=== PATIENT | female | born 1955 | race Caucasian/White ===

== ENCOUNTER → 2017-05-08 | Outpatient (CLI) | payer MEDICARE, OTHER ==
[~2017-05-08] MED LIST: ALBU0.63 NEB; ALPR0.25 PO; AMLO10TA2 PO; ATOR10TA15 PO; ESCI20TA PO; LOSA50TA PO; METF500T PO; OMEP40CA2 PO; POTA10CA PO; QUET5TAB PO; VENTAER INH; VOLT1GEL4 TOPICAL; ZOLP10TA3 PO
[2017-05-08 11:16] LABS: AUTOMATED NEUTROPHIL # 4.9 TH/MM3 (1.8-7.7); BASOPHIL # 0.1 TH/MM3 (0-0.2); BASOPHIL % 1.2 % (0.0-2.0); EOSINOPHIL # 0.3 TH/MM3 (0-0.4); EOSINOPHIL % 3.2 % (0.0-4.0); HEMATOCRIT 41.8 % (35.0-46.0); HEMO FLAGS DIFF FINAL; LYMPH % 26.8 % (9.0-44.0); LYMPHOCYTE # 2.2 TH/MM3 (1.0-4.8); MEAN CELL VOLUME 85.5 FL (80.0-100.0); MEAN CORPUSCULAR HEMOGLOBIN 28.9 PG (27.0-34.0); MEAN CORPUSCULAR HGB CONC 33.8 % (32.0-36.0); MONO % 8.2 % (0.0-8.0); NEUT % 60.6 % (16.0-70.0); PLATELET COUNT 288 TH/MM3 (150-450); RED BLOOD COUNT 4.89 MIL/MM3 (4.00-5.30); RED CELL DISTRIBUTION WIDTH 13.6 % (11.6-17.2)
[2017-05-08 11:25] LABS: INTERNATIONAL NORMALIZED RATIO 0.9 RATIO; PROTHROMBIN TIME - PATIENT 10.3 SEC (9.8-11.6)
--- NOTE | 2017-05-08 11:32 | RADRPT ---
EXAM DATE/TIME: 05/08/2017 11:17 [facility] COMPARISON: No previous studies available for comparison. INDICATIONS : Evaluate for pneumonia, pneumothorax, and communicable disease. Preoperative exam for left knee arthr oscopy and possible MEDICAL HISTORY : Hypertension. Carcinoma, breast. Diabetes. SURGICAL HISTORY : Multiple abdominal wall hernia repairs. ENCOUNTER: Initial ACUITY: 1 day PAIN SCORE: 0/10 LOCATION: Bilateral chest FINDINGS: PA and lateral views of the chest demonstrate the lungs to be symmetrically aerated without evidence of mass, infiltrate or effusion. There is some chronic appearing mild interstitial changes bilaterall y. There some mild prominence of the pulmonary vasculature. There is a calcified granuloma in the rig ht lower lung. The cardiomediastinal contours are unremarkable. Osseous structures are intact. CONCLUSION: 1. No definite acute pulmonary infiltrates. 2. Possible pulmonary venous congestion.. 3. Calcified granuloma in the right lower lung. 4. Mild chronic appearing interstitial changes bilaterally. Martin Yuan MD on May 08, 2017 at 11:29 Board Certified Radiologist. This report was verified electronically.
[2017-05-08 11:44] LABS: POTASSIUM 4.2 MEQ/L (3.5-5.1)
[2017-05-08 11:49] LABS: BACTERIA, URINE RARE /hpf; BLOOD, URINE NEG (NEG); COMMENT (UR) CULT NOT INDICATED; CULTURE IF INDICATED CULT NOT INDICATED; GLUCOSE,URINE NEG (NEG); KETONE, URINE NEG (NEG); MUCUS URINE FEW /lpf (OCC); NITRITE,URINE NEG (NEG); PH, URINE 6.5 (5.0-8.5); SQUAMOUS EPITHELIAL CELL URINE 2 /hpf (0-5); URINE COLOR YELLOW (YELLW/STRAW)
--- NOTE | 2017-05-09 17:07 | EKG ---
Date Performed: 05/08/2017 Time Performed: 10:42:57 PTAGE: 62 years EKG: ECTOPIC ATRIAL RHYTHM POSSIBLE RIGHT VENTRICULAR CONDUCTION DELAY ABNORMAL RHYTHM ECG NO PREVIOUS TRACING DOCTOR: Xavi Carlos Interpretating Date/Time 05/09/2017 17:06:12
== END ==
LOC: CPRE 10:15
PROVIDERS: ATTEND Orthopaedic Surgery
DX: Z01.812 Encounter for preprocedural laboratory examination (principal); Z01.810 Encounter for preprocedural cardiovascular examination; Z01.811 Encounter for preprocedural respiratory examination; S83.232D Complex tear of medial meniscus, current injury, left knee, subsequent encounter; I10 Essential (primary) hypertension; E11.9 Type 2 diabetes mellitus without complications; I49.9 Cardiac arrhythmia, unspecified
CPT/HCPCS: 36415; 71020; 80048; 81001; 85025; 85610; 93005

== ENCOUNTER → 2017-05-16 | Day surgery (SDC) | payer MEDICARE, OTHER ==
--- NOTE | 2017-05-07 07:46 | MH ---
cc: GENIA HUDSON DATE OF ADMISSION: 05/16/2017 ADMISSION DIAGNOSIS Complex tear medial meniscus left knee, chondromalacia left knee, chondromalacia patellae left knee, effusion left knee, Lorenzana's cyst left knee and pain of the left knee. HISTORY OF THE PRESENT ILLNESS The patient is a 62-year-old white female who has experienced pain of her left knee of almost 9 months duration. She had noted the onset of her symptoms in July of this past year being of a gradual onset along the medial aspect of her knee unrelated to injury or unusual activity. She had undergone initial medical evaluation with her primary care physician Dr. Olson who ordered x-ray studies the results of which reported mild osteoarthritis about the medial compartment with a questionable small joint effusion. The patient was prescribed Motrin as well as Voltaren gel and later a steroid dose pack with minimal benefit being appreciated. She was subsequently seen by the undersigned physician in August of this past year and at that time the patient reported ongoing pain that she localized to the medial aspect of her left knee with minimal swelling but no associated grinding or locking like symptoms. She did report that within the previous 4 years while living in [place] she had experienced a similar episode of pain of her knees and indicated she may have undergone a course of viscosupplementation with no appreciable benefit described. She had been on disability having undergone a mastectomy of her right breast and 1998 followed by reconstructive surgery with her postoperative course complicated by recurrent abdominal hernias that required multiple surgical procedures including mesh insertion. At the time of her initial office evaluation a review of her x-ray studies was without evidence of appreciable degenerative change. The patient was diagnosed as having tendonitis of her left knee for which she was treated with a local steroid injection and followed on an outpatient basis thereafter. She seemed to be doing reasonably well at that time indicating some overall improvement for the following few months. She returned to the office in March of this year reporting that she had had a flare-up of pain about her knee for which she was seen in the emergency room of [facility] with apparently no acute bony abnormality being noted. She was again prescribed Motrin and was seen in follow-up disposition and at that time described ongoing problems with regards to all weightbearing activities. A recommendation was made to proceed with an MRI scan which was completed, the results of which identified a complex tear involving the medial meniscus associated with a moderately severe medial compartment chondromalacia and mild patellofemoral compartment chondromalacia. A moderate sized joint effusion was associated with a large ruptured Lorenzana's cyst. The patient described ongoing pain about her knee especially along the medial aspect of the joint that was interfering with all ambulatory activities. The findings of her scan were reviewed and treatment options discussed. The pros and cons of continuing with further conservative modalities versus operative intervention that would involve arthroscopic surgery with possible arthrotomy was outlined. Emphasis was made regarding the fact that the decision to proceed with surgery would be left entirely to the patient's discretion. The patient felt that her level of discomfort was of such a degree that she was ready to proceed with surgery as discussed and upon completion of medical clearance from her primary care physician Dr. Olson she was scheduled for admission in order that the above be accomplished. PAST MEDICAL HISTORY Her past medical history, hospitalizations and surgeries have included: 1. Right breast mastectomy followed by reconstructive surgery with multiple hernias thereafter require additional operative procedures. 2. Colonoscopy. 3. Tubal ligation. PAST MEDICAL HISTORY The patient's medical illnesses include: 1. Hypertension. 2. And diabetes. MEDICATIONS Her current medications: 1. Albuterol 2.5 mg three times daily as needed. 2. Alprazolam 0.25 mg twice daily. 3. Amlodipine 10 mg daily. 4. Atorvastatin 10 mg daily. 5. Escitalopram 20 mg daily. 6. Losartan 50 mg daily. 7. Metformin 500 mg twice daily. 8. Omeprazole 40 mg daily. 9. One touch Verio strips. 10. Potassium chloride ER 10 mEq daily. 11. Quetiapine 50 mg daily. 12. Ventolin HFA 90 mcg daily. 13. Voltaren gel 1% four times daily. 14. Zolpidem 10 mg daily. ALLERGIES The patient denies any known drug allergies. REVIEW OF SYSTEMS She wears glasses. Denies headache, seizure or syncope. Occasional sinus congestion as related to environmental irritants. No epistaxis. Auditory acuity intact. No tinnitus. No bleeding gums or dysphagia. Denies cough, shortness of breath, upper respiratory infection, pneumonia or tuberculosis. No angina or heart disease. She is medically managed for hypertension. Her appetite is good. Bowel movements are regular. No hepatitis, gallbladder disease, ulcers or hemorrhoids. No urinary tract infection. No kidney stones. No history of fractures. No psychiatric illness. Her remaining review of systems is unremarkable and noncontributory. FAMILY HISTORY The patient has been 42 years. Her is 64 years of age and described as being in good health. Two daughters, one at 35 years of age with a history of stroke. Family history is otherwise positive for diabetes, hypertension, heart disease, Alzheimer's disease and stroke. SOCIAL HISTORY The patient completed a high school education. 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 She admits to an intermittent use of tobacco for 20 years, being approximately a one-pack per day but is basically limited smoking to near zero within the past year. Ethanol consumption on rare occasion. PHYSICAL EXAMINATION Height 5 feet 6 inches, weight 238 pounds. GENERAL: An alert, oriented responsive 62-year-old white female who sits quietly upon examination table with no obvious distress. HEAD, EYES, EARS, NOSE, AND THROAT: Pupils are equally round and reactive to light. Extraocular movements full. Sclerae clear. External nares clear. External auditory canals clear. Dental intact. Mucous membranes pink and moist. Pharynx clear. NECK: Supple. Active range of motion without appreciable pain. Carotid pulse palpable bilaterally. Trachea midline. Thyroid without enlargement. LUNGS: Clear to auscultation and percussion. No CVA tenderness. No discomfort throughout the dorsal lumbar spine. HEART: Regular rhythm. No murmur or gallop. ABDOMEN: Soft, nontender. Bowel sounds present. PELVIC: Per primary care physician. EXTREMITIES: Left knee there is a mild fullness about the knee consistent with intra-articular effusion. Medial joint line tenderness without palpable deformity. Apprehension and compression sign negative. A 0-105 degree range of motion with discomfort at the extreme of flexion. No crepitation or instability. No collateral ligamentous laxity. Christian test and drawer sign negative. Pivot shift and Coral sign positive for medial compartment pain. Straight-leg raising unremarkable at 80 degrees. Satisfactory mobility of the left hip with no associated pain. Distal sensory grossly intact. Mild antalgic gait. NEUROLOGIC: Cranial nerves II-XII grossly intact. IMPRESSION Complex tear medial meniscus left knee. chondromalacia left knee, chondromalacia patellae left knee, effusion left knee, Lorenzana's cyst left knee, pain left knee. PLAN Arthroscopic surgery and possible arthrotomy left knee. The nature of the planned surgical procedure, the potential complications and risks associated, the expectations of surgery and the consent form were thoroughly reviewed with the patient in the presence of her daughter prior to admission to the hospital. The patient has indicated her full understanding regarding all of the above and given consent to proceed with treatment as outlined. Medical evaluation and clearance for surgery will be completed by her primary care physician Dr. Sakshi Olson. MD FEDERICO Pritchard/KK /4:50 PM /7:39 AM
[~2017-05-16] VITALS: Ht 170.2 cm; Wt 108.9 kg
[~2017-05-16] MED LIST changes: +*RESP: ALBUTEROL 2.5 MG/3 ML NEB (PRN) PERIprocedural Use ONLY NEB ONE; +ACETAMINOPHEN 1000 MG/100 ML VIAL IV ONE; +ACETAMINOPHEN/HYDROcodone 325 MG/5 MG TAB PO PRN; +CHLORHEXIDINE GLUCONATE 2 % 1 PACK (2 CLOTHS) TOPICAL PRN; +DO NOT ADM ANY ANTICOAGULANT DRUGS PRN; +FAMOTIDINE 20 MG/2 ML VIAL ONE; +INSULIN HUMAN REGULAR 1,000 UNITS/10 ML VIAL SQ PRN; +KETOROLAC TROMETHAMINE 60 MG/2 ML (IM) VIAL IM ONE; +LACTATED RINGER'S 1000 ML INJ 1,000 ML IV ONE; +LACTATED RINGER'S 1000 ML IV PRN; +LIDOCAINE HCL 2% 50 ML VIAL ONE; +LIDOCAINE HCL 2% 50 ML VIAL OTHER ONE; +METOPROLOL TARTRATE 25 MG TAB PO PRN; +MIDAZOLAM HCL 2 MG/2 ML VIAL ONE; +MORPHINE SULFATE 10 MG/ML INJ IM PRN; +NEOSTIGMINE 3 MG/3 ML SYR IV ONE; +ONDANSETRON HCL 4 MG/2 ML VIAL IV PUSH ONE; +POVIDONE IODINE 5% (ANTISEPSIS KIT) 4 APPLICATIONS EACH NARE PRN; +POVIDONE IODINE 7.5% SCRUB 118 ML BOTTLE TOPICAL SCH; +PROMETHAZINE INJ 25 MG/ML VIAL IM PRN; +PROPOFOL 200 MG/20 ML AMP IV ONE; +SODIUM CHLORID 0.9% 500 ML IV PRN; +TRIAMCINOLONE ACETONIDE 40 MG/ML VIAL I-ARTICULR ONE; +TRIAMCINOLONE ACETONIDE 40 MG/ML VIAL ONE; +ceFAZolin 2 GM PREMIX 50 ML IV SCH; +ePHEDrine/NS 25 MG/5 ML SYR IV ONE; +fentaNYL CITRATE 250 MCG/5 ML AMP ONE
[2017-05-16 06:03] VITALS: BP 145/80; PULSE 79; RESP 20; TEMP 98.3; O2SAT 94
[2017-05-16 10:20] VITALS: BP 133/65; PULSE 76; RESP 20; TEMP 97.7; O2SAT 97
--- NOTE | 2017-05-16 16:19 | MP ---
cc: GENIA HUDSON DATE OF SURGERY 05/16/17 PREOPERATIVE DIAGNOSIS A complex tear of the medial meniscus of the left knee. Chondromalacia left knee. Chondromalacia patellae left knee. Effusion left knee. Lorenzana's cyst left knee. Pain of the left knee. POSTOPERATIVE DIAGNOSIS A complex tear of the medial meniscus of the left knee. Chondromalacia left knee. Chondromalacia patellae left knee. Effusion left knee. Lorenzana's cyst left knee. Pain of the left knee. Degenerative tear lateral meniscus left knee. Osteoarthritis left knee and synovial plica left knee. PROCEDURE Partial medial and lateral meniscectomy of the left knee. Chondroplasty of the medial compartment and resection of synovial plica left knee. SURGEON MD Kasey ANESTHESIA General by LMA. FORMAT Following the induction of satisfactory general anesthesia by LMA insertion as completed per the Department of Anesthesia examination of the left knee revealed a satisfactory range of motion with no appreciable ligamentous instability. The extremity proper was positioned into the nursing surgical services director knee beltran, prepped with Betadine solution and draped into a sterile field in the routine manner. Prior to initiation of the actual procedure the standard time-out protocol was completed. All parameters were appropriately addressed and confirmed by operating room personnel. Arthroscopic instrumentation was introduced through stab wound utilizing cannula with sharp and blunt trocar. The inflow irrigation by way of a medial suprapatellar portal. The arthroscope through a lateral parapatellar portal, a probe through a medial parapatellar portal. Examination of the suprapatellar pouch did reveal reactive synovium with a synovial plica extending along the medial aspect of the suprapatellar region. Mild degenerative change was noted throughout the patellofemoral articulation. Within the medial compartment a complex tear involving the body and posterior horn of the medial meniscus was noted with associated degenerative changes involving both femoral condyle and tibial plateau. The anterior cruciate ligament was identified and noted to be intact. Proliferative synovium did extend into the intercondylar region. Examination of the lateral compartment revealed a degenerative tear involving the body and anterior horn of the lateral meniscus with a lesser degree of degenerative involvement along the articular surface. Utilizing a 3.8 full radius resector a partial lateral meniscectomy was accomplished as well as __ debridement throughout the intercondylar region and thereafter a partial medial meniscectomy was noted followed by a chondroplasty involving the articular surfaces of both the femoral condyle and the tibial plateau. The shaver was thereafter oriented into the suprapatellar region and the previously identified synovial plica along with reactive synovitis was resected and sharply debrided. Upon completion of same the joint space was thoroughly lavaged and suctioned dry. An intra-articular Kenalog lidocaine injection was completed. Portal sites were reapproximated with Steri-Strips over which Xeroform gauze and a bulky dry sterile dressing were placed. Anesthesia was discontinued. The patient thus transferred to the hospital stretcher and returned to the recovery room in satisfactory condition having tolerated her operative procedure well. Estimated blood loss approximately 10 cc. MD FEDERICO Pritchard/ARIANNA /8:36 AM /4:02 PM
== END | disposition home or self-care (01) ==
LOC: HSDC 05:11
PROVIDERS: ATTEND Orthopaedic Surgery
DX: S83.232D Complex tear of medial meniscus, current injury, left knee, subsequent encounter (principal); M23.242 Derangement of anterior horn of lateral meniscus due to old tear or injury, left knee; X58.XXXD Exposure to other specified factors, subsequent encounter; M94.262 Chondromalacia, left knee; M22.40 Chondromalacia patellae, unspecified knee; M25.462 Effusion, left knee; M71.22 Synovial cyst of popliteal space [Baker], left knee; M17.12 Unilateral primary osteoarthritis, left knee; M67.52 Plica syndrome, left knee; I10 Essential (primary) hypertension; E11.9 Type 2 diabetes mellitus without complications; F32.9 Major depressive disorder, single episode, unspecified; F41.9 Anxiety disorder, unspecified; E66.9 Obesity, unspecified; Z68.37 Body mass index [BMI] 37.0-37.9, adult; Z87.891 Personal history of nicotine dependence; Z79.84 Long term (current) use of oral hypoglycemic drugs; Z79.51 Long term (current) use of inhaled steroids; Z79.899 Other long term (current) drug therapy
CPT/HCPCS: 01400; 29875; 29880; 94664; J0131; J0690; J1885; J2250; J2405; J2710; J3010; J3301; J7120; J7613

== ENCOUNTER 2017-07-29 10:05 | Day surgery (SDC) | payer MEDICARE, OTHER ==
[~2017-07-29] VITALS: Ht 167.6 cm; Wt 104.0 kg
[~2017-07-29 10:05] MED LIST changes: -*RESP: ALBUTEROL 2.5 MG/3 ML NEB (PRN) PERIprocedural Use ONLY NEB ONE; -ACETAMINOPHEN 1000 MG/100 ML VIAL IV ONE; -ACETAMINOPHEN/HYDROcodone 325 MG/5 MG TAB PO PRN; -CHLORHEXIDINE GLUCONATE 2 % 1 PACK (2 CLOTHS) TOPICAL PRN; -DO NOT ADM ANY ANTICOAGULANT DRUGS PRN; -FAMOTIDINE 20 MG/2 ML VIAL ONE; -INSULIN HUMAN REGULAR 1,000 UNITS/10 ML VIAL SQ PRN; -KETOROLAC TROMETHAMINE 60 MG/2 ML (IM) VIAL IM ONE; -LACTATED RINGER'S 1000 ML INJ 1,000 ML IV ONE; -LACTATED RINGER'S 1000 ML IV PRN; -LIDOCAINE HCL 2% 50 ML VIAL ONE; -LIDOCAINE HCL 2% 50 ML VIAL OTHER ONE; -METOPROLOL TARTRATE 25 MG TAB PO PRN; -MIDAZOLAM HCL 2 MG/2 ML VIAL ONE; -MORPHINE SULFATE 10 MG/ML INJ IM PRN; -NEOSTIGMINE 3 MG/3 ML SYR IV ONE; -ONDANSETRON HCL 4 MG/2 ML VIAL IV PUSH ONE; -POVIDONE IODINE 5% (ANTISEPSIS KIT) 4 APPLICATIONS EACH NARE PRN; -POVIDONE IODINE 7.5% SCRUB 118 ML BOTTLE TOPICAL SCH; -PROMETHAZINE INJ 25 MG/ML VIAL IM PRN; -PROPOFOL 200 MG/20 ML AMP IV ONE; -SODIUM CHLORID 0.9% 500 ML IV PRN; -TRIAMCINOLONE ACETONIDE 40 MG/ML VIAL I-ARTICULR ONE; -TRIAMCINOLONE ACETONIDE 40 MG/ML VIAL ONE; +VOLT1GEL16 TOPICAL; -VOLT1GEL4 TOPICAL; -ceFAZolin 2 GM PREMIX 50 ML IV SCH; -ePHEDrine/NS 25 MG/5 ML SYR IV ONE; -fentaNYL CITRATE 250 MCG/5 ML AMP ONE
[2017-07-29 10:21] VITALS: BP 142/86; PULSE 93; RESP 20; TEMP 98.3; O2SAT 95
[2017-07-29] MEDS ORDERED: SODIUM CHLORIDE 0.9% 1000 ML IV SCH (10:45)
[2017-07-29 10:58] LABS: AUTOMATED NEUTROPHIL # 7.5 TH/MM3 (1.8-7.7); BASOPHIL # 0.1 TH/MM3 (0-0.2); EOSINOPHIL # 0.3 TH/MM3 (0-0.4); EOSINOPHIL % 2.6 % (0.0-4.0); HEMATOCRIT 40.8 % (35.0-46.0); HEMO FLAGS DIFF FINAL; LYMPH % 22.6 % (9.0-44.0); LYMPHOCYTE # 2.5 TH/MM3 (1.0-4.8); MEAN CORPUSCULAR HEMOGLOBIN 28.8 PG (27.0-34.0); MEAN CORPUSCULAR HGB CONC 33.1 % (32.0-36.0); NEUT % 66.8 % (16.0-70.0); PLATELET COUNT 474 TH/MM3 (150-450); RED BLOOD COUNT 4.69 MIL/MM3 (4.00-5.30); RED CELL DISTRIBUTION WIDTH 13.8 % (11.6-17.2); WHITE BLOOD COUNT 11.2 TH/MM3 (4.0-11.0)
[2017-07-29 11:10] LABS: PROTHROMBIN TIME - PATIENT 11.1 SEC (9.8-11.6)
[2017-07-29] MEDS ORDERED: LIDOCAINE 1%/EPINEPHrine 1:100,000 SOLN 20 ML VIAL ONE (11:40)
[2017-07-29] MEDS ORDERED: MIDAZOLAM HCL 2 MG/2 ML VIAL ONE (12:02)
[2017-07-29 12:45] VITALS: BP 91/55; PULSE 78; RESP 20; TEMP 98.4; O2SAT 94
[2017-07-29 13:00] VITALS: BP 119/78; PULSE 91; RESP 20; O2SAT 96
[2017-07-29 13:30] VITALS: BP 126/82; PULSE 78; RESP 20; O2SAT 97
[2017-07-29 14:00] VITALS: BP 136/81; PULSE 77; RESP 20; O2SAT 95
--- NOTE | 2017-07-29 14:30 | RADRPT ---
EXAM DATE/TIME: 07/29/2017 12:03 [facility] COMPARISON: No previous studies available for comparison. INDICATIONS : Abdominal wall seroma/abscess. SEDATION TIME: 30 minutes MEDICATION(S): 1.) 2 mg midazolam (Versed) IV 2.) 100 mcg fentanyl (Sublimaze) IV DEVICE(S): 1.) 8 Fr Skater FLUID: Total volume of 100 cc of bloody pus was removed. Fluid was sent for laboratory ordered studies. MEDICAL HISTORY : Hypertension. Diabetes SURGICAL HISTORY : abdominal wall reconstruction ENCOUNTER: Initial ACUITY: 1 day PAIN SCORE: 0/10 LOCATION: abdominal PROCEDURE: 1.) Conscious sedation with continuous EKG and oximetry monitoring. PROCEDURE : 1. CT guided drainage of the anterior abdominal wall subcutaneous collection and placement of 8 Fren ch locking pigtail catheter. 2. Conscious sedation with continuous EKG and oximetry monitoring. The risks, benefits and alternatives to the procedure were explained and verbal and written consent w as obtained. Using automated exposure control and adjustment of the mA and/or kV according to patient size, radiation dose was kept as low as reasonably achievable to obtain optimal diagnostic quality i mages. The site was prepped in sterile fashion. Full sterile technique was used, including cap, ma sk, sterile gloves and gown and a large sterile sheet. Hand hygiene and 2% chlorhexidine and/or beta dine/alcohol prep was utilized per protocol for cutaneous antisepsis. The skin and subcutaneous tiss ues were infiltrated with local anesthetic solution. DICOM format image data is available electronic ally for review and comparison. Using CT guidance the prescribed site was localized. Drainage was performed using the prescribed cat heter The patient tolerated the procedure well and there were no complications. Conscious sedation was per formed with the prescribed dosages and duration as above in the presence of an independent trained ra diology nurse to assist in the monitoring of the patient. EKG and oximetry remained stable throughou t the procedure. The patient tolerated the procedure well and there were no complications. The patient was sent to pos t anesthesia recovery in stable condition. CONCLUSION: Uncomplicated CT guided drainage and placement of 8 Greenlandic locking pigtail catheter. Bola Oshea MD on July 29, 2017 at 14:27 Board Certified Radiologist. This report was verified electronically.
[2017-07-29] MEDS ORDERED: SODIUM CHLORIDE 0.9% 10 ML VIAL IRRIGATION SCH (20:00)
== END 2017-07-29 14:30 | disposition home or self-care (01) ==
LOC: HRIP 10:05 → HRAD 10:05
PROVIDERS: ATTEND Surgery
DX: T81.4XXA Infection following a procedure, initial encounter (principal); B95.61 Methicillin susceptible Staphylococcus aureus infection as the cause of diseases classified elsewhere; L02.211 Cutaneous abscess of abdominal wall; I10 Essential (primary) hypertension; E11.9 Type 2 diabetes mellitus without complications; Z79.84 Long term (current) use of oral hypoglycemic drugs
CPT/HCPCS: 10030; 75989; 85025; 85610; 85730; 86403; 87070; 87186; 87205; C1729; C1769; J2250; J3010; J7030

== ENCOUNTER → 2017-08-12 | Outpatient (CLI) | payer MEDICARE, OTHER ==
--- NOTE | 2017-08-12 14:47 | RADRPT ---
EXAM DATE/TIME: 08/12/2017 13:42 [facility] COMPARISON: CT ASSISTED ABSCESS DRAIN, July 29, 2017, 12:03. INDICATIONS : Evaluate abscess drain. The patient reports very low volumes of output from the drain. ORAL CONTRAST: No oral contrast ingested. RADIATION DOSE: 14.25 CTDIvol (mGy) MEDICAL HISTORY : Hypertension. Diabetes mellitus type 1. Carcinoma, breast. SURGICAL HISTORY : None. ENCOUNTER: Subsequent ACUITY: 2 weeks PAIN SCALE: 0/10 LOCATION: Bilateral abdomen TECHNIQUE: Volumetric scanning of the abdomen and pelvis was performed. Using automated exposure control and ad justment of the mA and/or kV according to patient size, radiation dose was kept as low as reasonably achievable to obtain optimal diagnostic quality images. DICOM format image data is available electro nically for review and comparison. FINDINGS: LOWER LUNGS: A 1 cm vascular structures seen within the medial right lung base. This is seen on the initial image of the study. It is not seen in its entirety. The lung bases are otherwise clear. LIVER: Homogeneous density without lesion. There is no dilation of the biliary tree. No calcified gallston es. SPLEEN: Normal size without lesion. PANCREAS: Within normal limits. KIDNEYS: Normal in size and shape. There is no mass, stone, or hydronephrosis. ADRENAL GLANDS: Within normal limits. VASCULAR: There is no aortic aneurysm. BOWEL/MESENTERY: The stomach, small bowel, and colon demonstrate no acute abnormality. There is no free intraperitone al air or fluid. Calcified mesenteric lymph nodes are seen involving the root of the mesentery. These are homogeneously calcified. These are unchanged. ABDOMINAL WALL: There is a drainage catheter involving the intra-abdominal wall. No residual fluid seen around the dr ramírez catheter. There is thickening and stranding of the intra-abdominal wall directly adjacent to t he rectus abdominis muscles. RETROPERITONEUM: There is no lymphadenopathy. BLADDER: No wall thickening or mass. REPRODUCTIVE: Within normal limits. INGUINAL: There is no lymphadenopathy or hernia. MUSCULOSKELETAL: Within normal limits for patient age. CONCLUSION: 1. No residual fluid and very little output involving the drainage catheter of the anterior abdominal wall. As per requested the drainage catheter was removed. 2. There is a 1 cm vascular structure partially seen within the right lung base. This is not seen in its entirety. I am unsure if this relates to marked shoulder venous malformation or if this could rel ate to anomalous pulmonary venous return. At some point a CT scan of the thorax with IV contrast is n eeded to further evaluate. Edwin Heller Jr., MD on August 12, 2017 at 14:39 Board Certified Radiologist. This report was verified electronically.
== END ==
LOC: HRAD 13:06
PROVIDERS: ATTEND Surgery
DX: K65.1 Peritoneal abscess (principal)
CPT/HCPCS: 74176